=== PATIENT | female | born 1950 | race Caucasian/White ===

== ENCOUNTER 2017-07-12 20:16 | Emergency (ER) | payer SELFPAY ==
[2017-07-12] MEDS ORDERED: HYDROcodone/Acetaminophen 5/325 mg Tablet ONE (20:42)
--- NOTE | 2017-07-12 21:01 | RAD ---
THREE VIEWS OF THE RIGHT SHOULDER 07/12/17 COMPARISON: None. HISTORY: Fall ten days ago, pain. FINDINGS: There is degenerative change involving the right acromioclavicular joint. There is no widening of the AC or CC interspace. No displaced fracture or dislocation is seen. IMPRESSION: Right AC joint degenerative change with no displaced fracture or dislocation. POS: [facility]
== END 2017-07-12 21:06 | disposition home or self-care (01) ==
LOC: SCSER 20:16
DX: S40.011A Contusion of right shoulder, initial encounter (principal); W19.XXXA Unspecified fall, initial encounter

== ENCOUNTER 2024-06-28 16:37 | Outpatient (CLI) | payer SELFPAY | END 2024-06-28 16:38 | disposition home or self-care (01) | LOC: RAD 16:37 | PROVIDERS: ATTEND Nurse Practitioner Family | DX: T14.90XA Injury, unspecified, initial encounter (principal); W19.XXXA Unspecified fall, initial encounter | CPT/HCPCS: 71046 ==